=== PATIENT | male | born 1980 | race Caucasian/White ===

== ENCOUNTER 2023-12-10 13:17 | Day surgery (SDC) | payer OTHER ==
[2023-12-04 15:34] VITALS: BMI 31.4
[~2023-12-10 13:17] MED LIST: DEXAMETHASONE SOD PHOSPHATE 4 MG/ML 1 ML VIAL IV ONE; HYDROmorphone 0.5 MG/0.5 ML SYRINGE IVP PRN; LACTATED RINGERS 1,000 ML IV SCH; MIDAZOLAM 2 MG/2 ML VIAL IV PRN; ONDANSETRON 4 MG/2 ML VIAL IVP ONE; Pre Op ABX Message 1 EACH MISC MISCELLANE ONE; SCOPOLAMINE 1 MG/72 HR PATCH TRANSDERM ONE
[2023-12-10] MEDS ORDERED: MIDAZOLAM 2 MG/2 ML VIAL IVP ONE (14:08)
[2023-12-10] MEDS ORDERED: fentaNYL (PF) 50 MCG/ML 2 ML AMP IVP ONE (14:08)
[2023-12-10 14:10] VITALS: RESP 16; TEMP 97
--- NOTE | 2023-12-10 14:26 | P.ANPRN ---
Procedure Note - Anesthesia - Nerve Block Performed Right Interscalene Single Time Out Performed: Yes Date of Procedure: 12/10/23 Procedure Start Time: 14:07 Procedure Stop Time: 14:15 Location of Patient: PreOp Indication: Acute Post-Operative Pain, Requested by Surgeon Sedation Type: Sedate with meaningful contact maintained Preparation: Sterile Prep Position: Supine Needle Types: Pajunk Needle Gauge: 21 Ultrasound used to observe medication spread: Yes Injectate: 0.5% Ropivacaine (see comment for volume) (20 ml + 10 ml NS + 4 mg Dexamethasone) Blood Aspirated: No Pain Paresthesia on Injection Noted: No Resistance on Injection: Normal Image Stored and Saved: Yes Events: Uneventful and Well Tolerated
[2023-12-10] MEDS ORDERED: SUCCINYLCHOLINE CHLORIDE 200 MG/10 ML VIAL IV ONE (14:49)
[2023-12-10] MEDS ORDERED: PROPOFOL 10 MG/ML 20 ML VIAL IV ONE (14:49)
[2023-12-10] MEDS ORDERED: SODIUM CHLORIDE 0.9% (PF) 10 ML VIAL ONE (14:49)
[2023-12-10] MEDS ORDERED: LIDOCAINE 1% INJ 10MG/ML (20 ML MDV) ONE (14:49)
[2023-12-10] MEDS ORDERED: MIDAZOLAM 2 MG/2 ML VIAL ONE (14:49)
[2023-12-10] MEDS ORDERED: ROPIVACAINE 5 MG/ML 30 ML VIAL ONE (14:49)
[2023-12-10] MEDS ORDERED: fentaNYL (PF) 50 MCG/ML 2 ML AMP ONE (14:49)
[2023-12-10] MEDS ORDERED: DEXAMETHASONE SOD PHOSPHATE 4 MG/ML 1 ML VIAL ONE (14:49)
[2023-12-10] MEDS ORDERED: EPINEPHrine (PF) 1 ML in SODIUM CHLORIDE 0.9% IRRIGATIO 3,000 ML IRRIGATION ONE ×8 (14:53)
[2023-12-10] MEDS ORDERED: SODIUM CHLORIDE 0.9% 100 ML with ceFAZolin 2,000 MG IV ONE ×2 (14:53)
--- NOTE | 2023-12-10 16:22 | P.OP ---
Date of Procedure: 12/10/23 Procedure(s) Performed: PREOPERATIVE DIAGNOSES: 1. Right shoulder pain 2. Right shoulder acromioclavicular osteoarthritis POSTOPERATIVE DIAGNOSES: 1. Right shoulder pain 2. Right shoulder acromioclavicular osteoarthritis PROCEDURES PERFORMED: 1. Right shoulder arthroscopy with resection of 6 mm of distal clavicle (arthroscopic Juan procedure) ANESTHESIA: General plus interscalene block (given for post-operative pain management) ATHLETIC COACH: Radha Saravia PA-C (assistance with: Patient positioning, arm positioning, camera positioning, closure, dressing) COMPLICATIONS: None ESTIMATED BLOOD LOSS: Less than 10 cc TOURNIQUET: None DISPOSITION: To post-anesthesia care unit INDICATIONS: Veena is a 43 year old male with a history of pain in his right shoulder that has been resistant to conservative management. He has signs and symptoms consistent with acromioclavicular joint arthritis and consequent arthralgia. There is no evidence of significant rotator cuff pathology on examination or MRI. At this point the patient has failed conservative management and I have advised an arthroscopic Juan procedure. I have explained the details of this surgery thoroughly and also explained the potential risks and complications. These are inclusive of, but not limited to: bleeding, infection, scarring, discomfort, blood vessel and nerve damage, stiffness, weakness, need for further surgery, failure to relieve symptoms, pers istence or worsening of problems, , and other risks. The consent form has been signed. PROCEDURE: Appropriate consent was obtained from the patient, who was then taken to the operating room and placed in the supine position. General anesthesia was initiated and after confirmation of adequate anesthesia, the patients shoulder was examined. There was full passive range of motion. The shoulder was stable. Next, the patient was rotated into the lateral decubitus position and stabilized to the table with a cuevas bag and padded straps. Care was taken to make sure that all pressure points were adequately padded. Bear-hugger was used along with bilateral leg sequential compression devices. Prepping and draping was completed in the usual aseptic fashion using Chloraprep. The patient received prophylactic intravenous antibiotics prior to incision. The shoulder was suspended from traction with 15 lbs. of weight in a position of 45 degrees abduction. Landmarks were outlined with a skin marking pen. Time out was called, confirming patients identity, side, procedure, and antibiotic administration. A spinal needle was inserted into the glenohumeral joint and fluid was administered to distend the joint. Good pressure was noted after 100 cc was administered. A posterior portal was created using an 11 blade and the arthroscopic canula, over a dull trocar, was carefully inserted into the joint. Arthroscopy then commenced. An anterior portal was inserted in the rotator interval area using inside-out technique. Biceps tendon was normal. Supraspinatus, infraspinatus, subscapularis, and teres minor attachments were normal. Hyaline cartilage of the glenoid and humeral head was normal. No loose bodies were noted in the joint. Superior labrum was normal. There was no detachment present. Subscapularis recess and axillary recess were normal. No significant synovitis was seen. Labrum elsewhere was completely intact and normal. Normal capsular ligaments. Attention was then directed to the subacromial space. The camera and instruments were redirected into the subacromial space and bursoscopy was performed. A lateral portal was created using outside-in technique and the bursa was removed as necessary for visualization. The bursal surface of the rotator cuff was fully visualized and found to be intact throughout. The acromioclavicular joint had degenerative changes. Using a combination of the lateral portal as well as the anterior portal, the distal clavicle was resected using a kisha for a distance of approximately 6 mm. At the conclusion of the resection, the area was checked for symmetry and completion with the camera in the anterior portal. Care was taken to avoid any injury to the superior AC ligament complex. Subsequently, 4-0 Monocryl suture was used to close the portals. Steri- strips were applied as well as sterile dressing. The shoulder was then placed into a sling and the patient was transferred to recovery room in stable condition. Sponge and needle counts were correct.
[2023-12-10 17:51] VITALS: BP 143/86; PULSE 72
== END 2023-12-10 17:40 | disposition home or self-care (01) ==
LOC: OR 13:17
PROVIDERS: ATTEND Orthopaedic Surgery
DX: M19.011 Primary osteoarthritis, right shoulder (principal); K21.9 Gastro-esophageal reflux disease without esophagitis; F17.200 Nicotine dependence, unspecified, uncomplicated; F12.90 Cannabis use, unspecified, uncomplicated; Z79.899 Other long term (current) drug therapy
CPT/HCPCS: 64415; 29824; J2250; J0330; J1100; J2405; J0690; J0171; J2001; J3010; J2795; J2704